=== PATIENT | male | born 1990 | race Two or more races ===

== ENCOUNTER 2019-03-14 11:00 | Emergency (ER) | payer OTHER ==
--- NOTE | 2019-03-14 11:07 | PDOC ---
Rapid Medical Evaluation Time Seen by Provider: 03/14/19 11:06 Medical Evaluation: Allergies Allergy/AdvReac Type Severity Reaction Status Date / Time No Known Allergies Allergy Verified 04/30/14 19:53 03/14/19 11:06 I have performed a brief in-person evaluation of this patient. The patient presents with a chief complaint of: L lower back and b/l leg pain since Tuesday, denies trauma/injury, denies difficulty with urination/hematuria, pt occupation is regional tanker truck driver, denies PMH Pertinent physical exam findings: well appearing, fully ambulatory I have ordered the following: urine The patient will proceed to the ED for further evaluation.
[2019-03-14 11:09] VITALS: BP 145/82; PULSE 91; TEMP 98.3; BMI 36.3
[2019-03-14 13:15] LABS: URINE APPEARANCE CLEAR; URINE BILIRUBIN NEGATIVE (NEGATIVE); URINE COLOR YELLOW; URINE GLUCOSE (UA) NEGATIVE (NEGATIVE); URINE KETONE NEGATIVE (NEGATIVE); URINE LEUK ESTERASE NEGATIVE (NEGATIVE); URINE NITRITE NEGATIVE (NEGATIVE); URINE PROTEIN NEGATIVE (NEGATIVE); URINE UROBILINOGEN 0.2 mg/dL (0.2-1.0)
[2019-03-14] MEDS ORDERED: NAPROXEN 500 MG TABLET (FP) PO ONE (13:29)
[2019-03-14] MEDS ORDERED: NAPROXEN 500 MG TABLET (FP) ONE (13:36)
--- NOTE | 2019-03-14 13:39 | PDOC ---
History of Present Illness - General Chief Complaint: Back Pain Stated Complaint: BACK PAIN Time Seen by Provider: 03/14/19 11:06 History Source: Patient Exam Limitations: No Limitations, Clinical Condition - History of Present Illness Initial Comments: 03/14/19 13:28 Patient is here with complaints of low back pain. 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 had onset of back pain last Tuesday and wonders but uncertain as to specific injury. has radiating pain through his right buttock and down the back of his leg. Took ibuprofen last night with some minor resolve. Denies numbness or tingling to feet, no problems with bowel or bladder. No history of back injury Occurred: reports: last week Severity: reports: mild, moderate Loss of Consciousness: no loss of consciousness Associated Symptoms (Fall): denies symptoms, muscle spasms Past History - Travel Traveled outside of the country in the last 30 days: No Close contact w/someone who was outside of country & ill: No - Past Medical History Allergies/Adverse Reactions: Allergies Allergy/AdvReac Type Severity Reaction Status Date / Time No Known Allergies Allergy Verified 03/14/19 13:15 Home Medications: Ambulatory Orders Cyclobenzaprine HCl 10 mg PO Q8H PRN #14 tablet 03/14/19 Naproxen [Naprosyn -] 500 mg PO BID #30 tablet 03/14/19 - Suicide/Smoking/Psychosocial Hx Smoking History: Never smoked Have you smoked in the past 12 months: No Information on smoking cessation initiated: No Hx Alcohol Use: No Drug/Substance Use Hx: No Substance Use Type: None Trauma Specific PMHX - Complaint Specific PMHX Back Injury: No Neck Injury: No Review of Systems - Review of Systems Able to Perform ROS?: Yes Is the patient limited Luxem[place]ish proficient: Yes Constitutional: Yes: Symptoms Reported, See HPI HEENTM: Yes: Symptoms Reported Respiratory: No: Symptoms reported Musculoskeletal: Yes: Symptoms Reported, See HPI, Back Pain, Muscle Pain *Physical Exam - Vital Signs Last Vital Signs Temp Pulse Resp BP Pulse Ox 98.3 F 91 H 17 145/82 96 03/14/19 11:06 03/14/19 11:06 03/14/19 11:06 03/14/19 11:06 03/14/19 11:06 - Physical Exam General Appearance: Yes: Nourished, Appropriately Dressed, Apparent Distress, Mild Distress HEENT: positive: KYMBERLY, Normal ENT Inspection, TMs Normal, Pharynx Normal Neck: positive: Supple. negative: Tender Respiratory/Chest: positive: Lungs Clear Musculoskeletal: positive: Normal Inspection, Muscle Spasm (mild tenderness and pain spasm palpated to the paravertebral spinous muscles lumbar spine. Has no point tenderness crepitus or deformity to any bony prominence. Range of motion is mildly limited to flexion at waist and favors right side. Neurovascular intact to feet, and no saddle anesthesia.). negative: CVA Tenderness, Vertebral Tenderness Extremity: positive: Normal Capillary Refill, Normal Inspection, Normal Range of Motion (ambulatory without unsteadiness or limp) Integumentary: positive: Dry, Warm, Pale Neurologic: positive: supervisor sewer system II-XII NML intact ED Treatment Course - ADDITIONAL ORDERS Additional order review: Laboratory Results 03/14/19 13:00 Urine Color Yellow Urine Appearance Clear Urine pH 6.0 Ur Specific Turner 1.020 Urine Protein Negative Urine Glucose (UA) Negative Urine Ketones Negative Urine Blood Negative Urine Nitrite Negative Urine Bilirubin Negative Urine Urobilinogen 0.2 Ur Leukocyte Esterase Negative Progress Note - Progress Note Progress Note: Low-back strain, will treat with NSAIDs and cyclobenzaprine *DC/Admit/Observation/Transfer Diagnosis at time of Disposition: Low back strain Qualifiers: Encounter type: initial encounter Qualified Code(s): S39.012A - Strain of muscle, fascia and tendon of lower back, initial encounter - Discharge Dispostion Disposition: HOME Condition at time of disposition: Stable Decision to Admit order: No - Prescriptions Prescriptions: Cyclobenzaprine HCl 10 mg PO Q8H PRN #14 tablet PRN Reason: spasm Naproxen [Naprosyn -] 500 mg PO BID #30 tablet - Referrals - Patient Instructions Printed Discharge Instructions: DI for Low Back Pain Additional Instructions: Rest, no heavy lifting or exercise until pain is resolved Hot soaks to neck and low back as often as possible/hot showers or Jacuzzis No massage or therapy until spasm is gone Continue Naprosyn 500 mg tablet, 1 tablet every 8 hours for the next 3 days then as needed for pain and swelling Cyclobenzaprine 1-10mg every 8 hours as needed for spasm If not significant improvement within 24 hours with medication and rest regime, followup with private physician for change in medications and /or therapy. - Post Discharge Activity Forms/Work/School Notes: Back to Work
== END 2019-03-14 13:48 | disposition home or self-care (01) ==
LOC: JERFT 11:00
DX: M54.5 Low back pain (principal); S39.012A Strain of muscle, fascia and tendon of lower back, initial encounter; X58.XXXA Exposure to other specified factors, initial encounter; Y93.89 Activity, other specified; Y92.89 Other specified places as the place of occurrence of the external cause; Y99.0 Civilian activity done for income or pay
CPT/HCPCS: 81003; 87086; 99281-25